=== PATIENT | male | born 1970 | race Caucasian/White ===

== ENCOUNTER 2016-11-09 12:25 | Observation (INO) | payer BC, OTHER ==
[2016-11-09] MEDS ORDERED: Sodium Chloride 0.9% 10 ML Syringe FLUSH PRN (14:33)
[2016-11-09] MEDS: Piperacillin/Tazobactam 3.375 GM in Sodium Chloride 0.9% 50 ML IV SCH ×2 (15:09→20:00)
[2016-11-09] MEDS: Sodium Chloride 0.9% 10 ML Syringe FLUSH PRN ×2 (15:12→19:58)
[2016-11-09] MEDS: Sodium Chloride 0.9% 250 ML IV SCH (15:15)
[2016-11-09] MEDS ORDERED: traMADol 50 MG Tab PO PRN (18:17)
--- NOTE | 2016-11-09 18:17 | PCM.HP ---
H&P History of Present Illness - General Date of Service: 11/09/16 Admit Problem/Dx: Admission Diagnosis/Problem Admission Diagnosis/Problem Infection of right foot Source of Information: Patient History Limitations: Reports: No Limitations - History of Present Illness Initial Comments - Free Text/Narative: This is a 46-year-old male patient started having a rash and pain behind his left leg. He had fevers and some nausea and headache. Wednesday he continued. He had a rash behind his leg. He doesn't know where he got it. He denies any tick bites. He was at the [facility] no other exposures. He has no history of cellulitis. Saw Dr. Sharda erickson and jonathan felt he should be admitted cellulitis left leg. - Related Data Allergies/Adverse Reactions: Allergies Allergy/AdvReac Type Severity Reaction Status Date / Time No Known Allergies Allergy Verified 11/09/16 14:08 Home Medications: Home Meds Acetaminophen [Tylenol] 650 mg PO Q6H PRN 11/09/16 [History] Ibuprofen 600 mg PO Q6HR PRN 11/09/16 [History] Past Medical History HEENT History: Reports: Impaired Vision Musculoskeletal History: Reports: Arthritis Endocrine/Metabolic History: Reports: Obesity/BMI 30+ - Infectious Disease History Infectious Disease History: Reports: Other (See Below) Other Infectious Disease History: Denies history of MRSA. - Past Surgical History HEENT Surgical History: Reports: Tonsillectomy Musculoskeletal Surgical History: Reports: Other (See Below) Other Musculoskeletal Surgeries/Procedures:: Patient has had left knee scoped previously. Patient states he has arthritis of the bilateral knees. Social & Family History - Family History HEENT: Reports: Impaired Vision Musculoskeletal: Reports: Arthritis Endocrine/Metabolic: Reports: Diabetes, type II Oncologic: Reports: Other (See Below) Other Oncologic Family History: Patient states father at the age of 56 d/t bile duct cancer. - Tobacco Use Smoking Status *Q: Former Smoker Years of Tobacco use: 4 Packs/Tins Daily: 1.5 Used Tobacco, but Quit: Yes Month Tobacco Last Used: June of 1995 Second Hand Smoke Exposure: No - Caffeine Use Caffeine Use: Reports: Coffee - Alcohol Use Days Per Week of Alcohol Use: 2 Number of Drinks Per Day: 5 Total Drinks Per Week: 10 Date of Last Drink: 11/07/16 Time of Last Drink: 13:00 - Recreational Drug Use Recreational Drug Use: No H&P Review of Systems - Review of Systems: Review Of Systems: See Below General: Reports: Fever, Chills, Malaise, Weakness, Night Sweats, Decreased Appetite HEENT: Reports: No Symptoms Pulmonary: Reports: No Symptoms Cardiovascular: Reports: No Symptoms Gastrointestinal: Reports: Nausea. Denies: Abdominal Pain, Diarrhea, Vomiting Genitourinary: Reports: No Symptoms Musculoskeletal: Reports: Leg Pain Skin: Reports: Erythema Psychiatric: Reports: No Symptoms Neurological: Reports: No Symptoms Hematologic/Lymphatic: Reports: No Symptoms Immunologic: Reports: No Symptoms Exam - Exam Exam: See Below - Vital Signs Vital Signs: Last Vital Signs Temp 97.7 F 11/09/16 16:46 Pulse 81 11/09/16 16:46 Resp 16 11/09/16 16:46 BP 127/88 11/09/16 16:46 Pulse Ox 100 11/09/16 16:46 Weight: 315 lb 4.8 oz - Exam General: Alert, Oriented, Cooperative HEENT: PERRLA, EACs Clear, EOMI, Hearing Intact, Mucosa Moist & [place], Posterior Pharynx Clear, TMs Clear. No: Rhinitis Neck: Supple, Trachea Midline, 2 Lungs: Clear to Auscultation, Normal Respiratory Effort Cardiovascular: Regular Rate, Regular Rhythm, Normal S1, Normal S2. No: Systolic Murmur GI/Abdominal Exam: Normal Bowel Sounds, Soft, Non-Tender, No Organomegaly, No Distention, No Abnormal Bruit Back Exam: Normal Inspection, Full Range of Motion, NT Extremities: Normal Inspection, Leg Pain, Redness Skin: Other (Erythema in the left popliteal area some scabbing. No open lesions. ) Neurological: Normal Speech, Normal Tone Neuro Extensive - Mental Status: Alert Neuro Extensive - Motor, Sensory, Reflexes: Normal Gait Psychiatric: Alert, Normal Affect, Normal Mood - Patient Data Lab Results Last 24 hrs: Laboratory Results - last 24 hr 11/09/16 11/09/16 Range/Units 15:05 15:05 WBC 4.8 (4.5-12.0) X10-3/uL RBC 4.58 (4.30-5.75) x10(6)uL Hgb 14.0 (11.5-15.5) g/dL Hct 41.0 (30.0-51.3) % MCV 89.6 (80-96) fL MCH 30.6 (27.7-33.6) pg MCHC 34.2 (32.2-35.4) g/dL RDW 12.2 (11.5-15.5) % Plt Count 173 (125-369) X10(3)uL MPV 8.2 (7.4-10.4) fL Add Manual Diff Yes Neutrophils % (Manual) 57 (46-82) % Band Neutrophils % 6 (0-6) % Lymphocytes % (Manual) 25 (13-37) % Monocytes % (Manual) 9 (4-12) % Eosinophils % (Manual) 2 (0-5) % Basophils % (Manual) 1 (0-2) % ESR 33 H (0-15) mm/hr Sodium 136 (135-145) mmol/L Potassium 4.4 (3.5-5.3) mmol/L Chloride 104 (100-110) mmol/L Carbon Dioxide 26 (23-29) mmol/L BUN 14 (5-20) mg/dL Creatinine 0.7 (0.6-1.3) mg/dL Est Cr Clr Drug Dosing 151.68 mL/min Estimated GFR (MDRD) > 60 (>60) BUN/Creatinine Ratio 20.0 (9-20) Glucose 110 (80-116) mg/dL Calcium 9.3 (8.6-10.2) mg/dL Total Bilirubin 1.3 (0.1-1.3) mg/dL AST 39 H (5-27) IU/L ALT 48 H (14-26) IU/L Alkaline Phosphatase 103 (56-112) IU/L C-Reactive Protein 4.6 H* (0.0-1.0) mg/dL Total Protein 7.7 (6.0-8.0) g/dL Albumin 4.3 (3.5-5.2) g/dL Globulin 3.4 g/dL Albumin/Globulin Ratio 1.3 Result Diagrams: 11/09/16 15:05 11/09/16 15:05 *Q Meaningful Use (ADM) - VTE *Q VTE Criteria *Q: - Stroke *Q Stroke Criteria *Q: - AMI *Q AMI Criteria *Q: - Problem List (1) Cellulitis of leg without foot, left SNOMED Code(s): 314936168 ICD Code: L03.116 - CELLULITIS OF LEFT LOWER LIMB Status: Acute Current Visit: Yes Problem List Initiated/Reviewed/Updated: Yes Orders Last 24hrs: Active Orders 24 hr Category Date Time Status Patient Status [ADT] Routine ADT 11/09/16 13:00 Active Activity as Tolerated [RC] .Routine Care 11/09/16 14:33 Active Regular Diet [DIET] Diet 11/09/16 Dinner Active CULTURE BLOOD [BC] Routine Lab 11/09/16 15:05 Received CULTURE BLOOD [BC] Routine Lab 11/09/16 15:10 Received Piperacillin/Tazobactam [Zosyn] 3.375 gm Med 11/09/16 14:00 Active Sodium Chloride 0.9% [Normal Saline] 50 ml IV Q6H Sodium Chloride 0.9% [Normal Saline] 250 ml Med 11/09/16 15:15 Active IV ASDIRECTED Sodium Chloride 0.9% [Saline Flush] Med 11/09/16 14:25 Active 10 ml FLUSH ASDIRECTED PRN Vancomycin 2,000 mg Med 11/09/16 16:00 Active Sodium Chloride 0.9% [Normal Saline] 500 ml IV Q12H Vancomycin Pharmacy to Dose [Pharmacy to Dose - Med 11/09/16 14:45 Pending Vancomycin] 1 dose .XX ASDIRECTED Saline Lock Insert [OM.PC] Routine Oth 11/09/16 14:33 Ordered Medication Orders Vancomycin HCl 2,000 mg/ (Sodium Chloride) 500 mls @ 250 mls/hr IV Q12H [facility] Last Admin: 11/09/16 16:07 Dose: 250 mls/hr Piperacillin Sod/Tazobactam (Sod 3.375 gm/ Sodium Chloride) 50 mls @ 100 mls/ hr IV Q6H [facility] Last Admin: 11/09/16 15:09 Dose: 100 mls/hr Sodium Chloride (Normal Saline) 250 mls @ 125 mls/hr IV ASDIRECTED [facility] Last Admin: 11/09/16 15:15 Dose: 125 mls/hr Sodium Chloride (Saline Flush) 10 ml FLUSH ASDIRECTED PRN PRN Reason: Keep Vein Open Last Admin: 11/09/16 15:12 Dose: 10 ml Vancomycin HCl (Pharmacy To Dose - Vancomycin) 1 dose .XX ASDIRECTED [facility] Assessment/Plan Comment:: 1. Admit for observation and IV antibiotics. 2. Regular diet. 3. Up ad bhavya. 4. Tramadol when necessary for pain. 5. Full code. 6. CBC, chem panel, sedimentation rate, CRP, blood cultures.
[2016-11-09] MEDS ORDERED: Acetaminophen 325 MG Tab PO PRN (18:18)
[2016-11-09] MEDS: Ibuprofen 600 MG Tab PO PRN (19:43)
[2016-11-10] MEDS: Sodium Chloride 0.9% 10 ML Syringe FLUSH PRN (02:12)
[2016-11-10] MEDS: Piperacillin/Tazobactam 3.375 GM in Sodium Chloride 0.9% 50 ML IV SCH ×4 (02:15→19:41)
[2016-11-10] MEDS: Ibuprofen 600 MG Tab PO PRN (05:41)
--- NOTE | 2016-11-10 08:15 | PCM.PN ---
- General Info Date of Service: 11/10/16 Admission Dx/Problem (Free Text): Patient states he had chills last night no fevers. Pain behind his right leg is minimal - Patient Data Vitals - Most Recent: Last Vital Signs Temp 98 F 11/10/16 05:41 Pulse 81 11/09/16 16:46 Resp 16 11/09/16 16:46 BP 127/88 11/09/16 16:46 Pulse Ox 100 11/09/16 16:46 Weight - Most Recent: 315 lb 4.8 oz I&O - Last 24 Hours: Intake & Output 11/09/16 11/10/16 11/10/16 22:59 06:59 14:59 Intake Total 320 70 Balance 320 70 Lab Results Last 24 Hours: Laboratory Results - last 24 hr 11/09/16 11/09/16 Range/Units 15:05 15:05 WBC 4.8 (4.5-12.0) X10-3/uL RBC 4.58 (4.30-5.75) x10(6)uL Hgb 14.0 (11.5-15.5) g/dL Hct 41.0 (30.0-51.3) % MCV 89.6 (80-96) fL MCH 30.6 (27.7-33.6) pg MCHC 34.2 (32.2-35.4) g/dL RDW 12.2 (11.5-15.5) % Plt Count 173 (125-369) X10(3)uL MPV 8.2 (7.4-10.4) fL Add Manual Diff Yes Neutrophils % (Manual) 57 (46-82) % Band Neutrophils % 6 (0-6) % Lymphocytes % (Manual) 25 (13-37) % Monocytes % (Manual) 9 (4-12) % Eosinophils % (Manual) 2 (0-5) % Basophils % (Manual) 1 (0-2) % ESR 33 H (0-15) mm/hr Sodium 136 (135-145) mmol/L Potassium 4.4 (3.5-5.3) mmol/L Chloride 104 (100-110) mmol/L Carbon Dioxide 26 (23-29) mmol/L BUN 14 (5-20) mg/dL Creatinine 0.7 (0.6-1.3) mg/dL Est Cr Clr Drug Dosing 151.68 mL/min Estimated GFR (MDRD) > 60 (>60) BUN/Creatinine Ratio 20.0 (9-20) Glucose 110 (80-116) mg/dL Calcium 9.3 (8.6-10.2) mg/dL Total Bilirubin 1.3 (0.1-1.3) mg/dL AST 39 H (5-27) IU/L ALT 48 H (14-26) IU/L Alkaline Phosphatase 103 (56-112) IU/L C-Reactive Protein 4.6 H* (0.0-1.0) mg/dL Total Protein 7.7 (6.0-8.0) g/dL Albumin 4.3 (3.5-5.2) g/dL Globulin 3.4 g/dL Albumin/Globulin Ratio 1.3 Med Orders - Current: Current Medications Acetaminophen (Tylenol) 650 mg PO Q6H PRN PRN Reason: Fever Last Admin: 11/09/16 23:52 Dose: 650 mg Vancomycin HCl 2,000 mg/ (Sodium Chloride) 500 mls @ 250 mls/hr IV Q12H [facility] Last Admin: 11/10/16 03:20 Dose: 250 mls/hr Piperacillin Sod/Tazobactam (Sod 3.375 gm/ Sodium Chloride) 50 mls @ 100 mls/ hr IV Q6H [facility] Last Admin: 11/10/16 07:36 Dose: 100 mls/hr Sodium Chloride (Normal Saline) 250 mls @ 125 mls/hr IV ASDIRECTED [facility] Last Admin: 11/09/16 15:15 Dose: 125 mls/hr Ibuprofen (Motrin) 600 mg PO Q6H PRN PRN Reason: Fever Last Admin: 11/10/16 05:41 Dose: 600 mg Sodium Chloride (Saline Flush) 10 ml FLUSH ASDIRECTED PRN PRN Reason: Keep Vein Open Last Admin: 11/10/16 02:12 Dose: 10 ml Tramadol HCl (Ultram) 50 mg PO Q6H PRN PRN Reason: Pain Vancomycin HCl (Pharmacy To Dose - Vancomycin) 1 dose .XX ASDIRECTED [facility] Discontinued Medications Sodium Chloride (Saline Flush) 10 ml FLUSH ASDIRECTED PRN PRN Reason: Keep Vein Open - Exam General: Alert, Oriented, Cooperative Lungs: Normal Respiratory Effort Extremities: Other (Erythema behind the right leg with a scab that is drying up. No fluctuant masses.) - Problem List & Annotations (1) Cellulitis of leg without foot, left SNOMED Code(s): 050720459 Code(s): L03.116 - CELLULITIS OF LEFT LOWER LIMB Status: Acute Current Visit: Yes - Problem List Review Problem List Initiated/Reviewed/Updated: Yes - My Orders Last 24 Hours: My Active Orders 11/09/16 13:00 Patient Status [ADT] Routine 11/09/16 14:00 Piperacillin/Tazobactam [Zosyn] 3.375 gm Sodium Chloride 0.9% [Normal Saline] 50 ml IV Q6H 11/09/16 14:25 Sodium Chloride 0.9% [Saline Flush] 10 ml FLUSH ASDIRECTED PRN 11/09/16 14:33 Activity as Tolerated [RC] .Routine Saline Lock Insert [OM.PC] Routine 11/09/16 14:45 Vancomycin Pharmacy to Dose [Pharmacy to Dose - Vancomycin] 1 dose .XX ASDIRECTED 11/09/16 15:05 CULTURE BLOOD [BC] Routine 11/09/16 15:10 CULTURE BLOOD [BC] Routine 11/09/16 15:15 Sodium Chloride 0.9% [Normal Saline] 250 ml IV ASDIRECTED 11/09/16 16:00 Vancomycin 2,000 mg Sodium Chloride 0.9% [Normal Saline] 500 ml IV Q12H 11/09/16 18:17 traMADol [Ultram] 50 mg PO Q6H PRN Resuscitation Status Routine 11/09/16 18:18 Acetaminophen [Tylenol] 650 mg PO Q6H PRN Ibuprofen [Motrin] 600 mg PO Q6H PRN 11/09/16 Dinner Regular Diet [DIET] 11/11/16 03:30 VANCOMYCIN TROUGH [CHEM] Timed - Plan Plan:: 1. Continue current care
[2016-11-10] MEDS: Sodium Chloride 0.9% 250 ML IV SCH (16:16)
[2016-11-11] MEDS: Sodium Chloride 0.9% 10 ML Syringe FLUSH PRN ×3 (01:42→07:58)
[2016-11-11] MEDS: Piperacillin/Tazobactam 3.375 GM in Sodium Chloride 0.9% 50 ML IV SCH ×2 (01:45→08:02)
--- NOTE | 2016-11-11 07:37 | PCM.PN ---
- General Info Date of Service: 11/11/16 Admission Dx/Problem (Free Text): Patient states he had a good night. The rash is getting better and he had no fevers or chills or body aches. - Patient Data Vitals - Most Recent: Last Vital Signs Temp 98.2 F 11/11/16 00:05 Pulse 83 11/11/16 00:05 Resp 18 11/11/16 00:05 BP 125/85 11/11/16 00:05 Pulse Ox 98 11/11/16 00:05 Weight - Most Recent: 315 lb 4.8 oz I&O - Last 24 Hours: Intake & Output 11/10/16 11/11/16 11/11/16 22:59 06:59 14:59 Intake Total 603 610 Balance 603 610 Lab Results Last 24 Hours: Laboratory Results - last 24 hr 11/11/16 Range/Units 03:35 Vancomycin Trough 10.4 (10-15) ug/mL Kristian Results Last 24 Hours: Microbiology 11/09/16 15:10 Aerobic Blood Culture - Preliminary Blood NO GROWTH AFTER 1 DAY Anaerobic Blood Culture - Preliminary NO GROWTH AFTER 1 DAY 11/09/16 15:05 Aerobic Blood Culture - Preliminary Blood NO GROWTH AFTER 1 DAY Anaerobic Blood Culture - Preliminary NO GROWTH AFTER 1 DAY Med Orders - Current: Current Medications Acetaminophen (Tylenol) 650 mg PO Q6H PRN PRN Reason: Fever Last Admin: 11/09/16 23:52 Dose: 650 mg Vancomycin HCl 2,000 mg/ (Sodium Chloride) 500 mls @ 250 mls/hr IV Q12H [facility] Last Admin: 11/11/16 04:30 Dose: 250 mls/hr Piperacillin Sod/Tazobactam (Sod 3.375 gm/ Sodium Chloride) 50 mls @ 100 mls/ hr IV Q6H [facility] Last Admin: 11/11/16 01:45 Dose: 100 mls/hr Sodium Chloride (Normal Saline) 250 mls @ 125 mls/hr IV ASDIRECTED [facility] Last Admin: 11/10/16 16:16 Dose: 125 mls/hr Ibuprofen (Motrin) 600 mg PO Q6H PRN PRN Reason: Fever Last Admin: 11/10/16 05:41 Dose: 600 mg Sodium Chloride (Saline Flush) 10 ml FLUSH ASDIRECTED PRN PRN Reason: Keep Vein Open Last Admin: 11/11/16 04:24 Dose: 10 ml Tramadol HCl (Ultram) 50 mg PO Q6H PRN PRN Reason: Pain Vancomycin HCl (Pharmacy To Dose - Vancomycin) 1 dose .XX ASDIRECTED [facility] Discontinued Medications Sodium Chloride (Saline Flush) 10 ml FLUSH ASDIRECTED PRN PRN Reason: Keep Vein Open - Exam General: Alert, Oriented, Cooperative Skin: Other (The right knee there is less erythema still scabbing but no weeping of the wound.) - Problem List & Annotations (1) Cellulitis of leg without foot, left SNOMED Code(s): 815215377 Code(s): L03.116 - CELLULITIS OF LEFT LOWER LIMB Status: Acute Current Visit: Yes - Problem List Review Problem List Initiated/Reviewed/Updated: Yes - My Orders Last 24 Hours: My Active Orders 11/13/16 03:30 VANCOMYCIN TROUGH [CHEM] Routine - Plan Plan:: 1. Charge to home on by mouth antibiotics. I used Augmentin and sulfa to cover both normal bacteria and MRSA.
--- NOTE | 2016-11-11 07:42 | PCM.DCSUM1 ---
Discharge Summary - Hospital Course Free Text/Narrative:: Hospital course-patient was placed on vancomycin and Zosyn per up-to-date recommendations. They state patient had a little bit of fevers and chills. By day to the rash is much improved he had no fevers or chills or drainage from the wound. CBC was normal blood cultures they're not finisher completely negative. We'll discharge to home on Augmentin and Bactrim by mouth. Brief History: This is a 46-year-old male patient started having a rash and pain behind his left leg. He had fevers and some nausea and headache. Wednesday he continued. He had a rash behind his leg. He doesn't know where he got it. He denies any tick bites. He was at the [facility] no other exposures. He has no history of cellulitis. Saw Dr. Sharda erickson and jonathan felt he should be admitted cellulitis left leg. - Discharge Data Discharge Date: 11/11/16 Discharge Disposition: Home, Self-Care 01 Condition: Good - Discharge Diagnosis/Problem(s) (1) Cellulitis of leg without foot, left SNOMED Code(s): 265524801 ICD Code: L03.116 - CELLULITIS OF LEFT LOWER LIMB Status: Acute Current Visit: Yes - Patient Instructions Diet: Regular Diet as Tolerated Activity: As Tolerated Driving: May Drive Today Showering/Bathing: May Shower Notify Provider of: Fever, Increased Pain, Swelling and Redness, Drainage, Nausea and/or Vomiting Other/Special Instructions: 1. Recheck with Dr. Dayron Robin 7-dependent - Discharge Plan Prescriptions/Med Rec: Amoxicillin/Potassium Clav [Augmentin 500-125 Tablet] 1 each PO BID #16 tablet Sulfamethoxazole/Trimethoprim [Bactrim Ds Tablet] 1 each PO BID #22 tablet Home Medications: Home Meds Acetaminophen [Tylenol] 650 mg PO Q6H PRN 11/09/16 [History] Ibuprofen 600 mg PO Q6HR PRN 11/09/16 [History] Arnoldo [employer] Metabolism Multivitamin Pack 1 pack PO DAILY 11/10/16 [ History] Amoxicillin/Potassium Clav [Augmentin 500-125 Tablet] 1 each PO BID #16 tablet 11/11/16 [Rx] Sulfamethoxazole/Trimethoprim [Bactrim Ds Tablet] 1 each PO BID #22 tablet 11/11 [Rx] - Patient Data Vitals - Most Recent: Last Vital Signs Temp 98.2 F 11/11/16 00:05 Pulse 83 11/11/16 00:05 Resp 18 11/11/16 00:05 BP 125/85 11/11/16 00:05 Pulse Ox 98 11/11/16 00:05 Weight - Most Recent: 315 lb 4.8 oz I&O - Last 24 hours: Intake & Output 11/10/16 11/11/16 11/11/16 22:59 06:59 14:59 Intake Total 603 610 Balance 603 610 Lab Results - Last 24 hrs: Laboratory Results - last 24 hr 11/11/16 Range/Units 03:35 Vancomycin Trough 10.4 (10-15) ug/mL [facility] Results - Last 24 hrs: Microbiology 11/09/16 15:10 Aerobic Blood Culture - Preliminary Blood NO GROWTH AFTER 1 DAY Anaerobic Blood Culture - Preliminary NO GROWTH AFTER 1 DAY 11/09/16 15:05 Aerobic Blood Culture - Preliminary Blood NO GROWTH AFTER 1 DAY Anaerobic Blood Culture - Preliminary NO GROWTH AFTER 1 DAY Med Orders - Current: Current Medications Acetaminophen (Tylenol) 650 mg PO Q6H PRN PRN Reason: Fever Last Admin: 11/09/16 23:52 Dose: 650 mg Vancomycin HCl 2,000 mg/ (Sodium Chloride) 500 mls @ 250 mls/hr IV Q12H [facility] Last Admin: 11/11/16 04:30 Dose: 250 mls/hr Piperacillin Sod/Tazobactam (Sod 3.375 gm/ Sodium Chloride) 50 mls @ 100 mls/ hr IV Q6H [facility] Last Admin: 11/11/16 01:45 Dose: 100 mls/hr Sodium Chloride (Normal Saline) 250 mls @ 125 mls/hr IV ASDIRECTED [facility] Last Admin: 11/10/16 16:16 Dose: 125 mls/hr Ibuprofen (Motrin) 600 mg PO Q6H PRN PRN Reason: Fever Last Admin: 11/10/16 05:41 Dose: 600 mg Sodium Chloride (Saline Flush) 10 ml FLUSH ASDIRECTED PRN PRN Reason: Keep Vein Open Last Admin: 11/11/16 04:24 Dose: 10 ml Tramadol HCl (Ultram) 50 mg PO Q6H PRN PRN Reason: Pain Vancomycin HCl (Pharmacy To Dose - Vancomycin) 1 dose .XX ASDIRECTED [facility] Discontinued Medications Sodium Chloride (Saline Flush) 10 ml FLUSH ASDIRECTED PRN PRN Reason: Keep Vein Open *Q Meaningful Use (DIS) - VTE *Q VTE Criteria *Q: - Stroke *Q Stroke Criteria *Q: - AMI *Q AMI Criteria *Q:
[2016-11-11] MEDS: Sodium Chloride 0.9% 250 ML IV SCH (08:01)
[2016-11-11 10:59] VITALS: BP 125/77
== END 2016-11-11 09:40 | disposition home or self-care (01) ==
LOC: FB.MS 12:53
PROVIDERS: ADMIT Family Medicine; ATTEND Family Medicine
DX: L03.116 Cellulitis of left lower limb (principal); E66.9 Obesity, unspecified; Z79.2 Long term (current) use of antibiotics; Z79.899 Other long term (current) drug therapy; Z68.30 Body mass index [BMI] 30.0-30.9, adult; Z98.890 Other specified postprocedural states; Z87.891 Personal history of nicotine dependence
CPT/HCPCS: 36415; 80053; 80202; 85025; 85651; 86140; 87040; 96365; 96366; 96367; 96375; A9270; G0378; G0379; J2543; J3370; J7040; J7050